=== PATIENT | female | born 1965 | race Caucasian/White ===

== ENCOUNTER 2016-07-04 22:08 | Emergency (ER) | payer MEDICARE, MEDICAID ==
[~2016-07-04] VITALS: Ht 157.5 cm; Wt 77.1 kg
[~2016-07-04 22:08] MED LIST: ASPI-496 PO; BUPR1FIL PO; CALC-39 PO; CYAN100063 PO; FERR325T20 PO; KRIL1CAP9 PO; LORA1TAB PO; METAMUCIL425 GM PO; MULT-230 PO; MULT1CAP19 PO; OMEP-110 PO; PENI500T PO
[2016-07-04 22:19] VITALS: BP 105/70
[2016-07-04] MEDS ORDERED: KETOROLAC 30 MG/1 ML ONE (23:46)
[2016-07-05] MEDS ORDERED: KETOROLAC 30 MG/1 ML IM ONE
== END 2016-07-05 00:54 | disposition home or self-care (01) ==
LOC: ED 23:59
DX: S39.012A Strain of muscle, fascia and tendon of lower back, initial encounter (principal); M54.41 Lumbago with sciatica, right side; Z90.710 Acquired absence of both cervix and uterus; X58.XXXA Exposure to other specified factors, initial encounter; Y93.89 Activity, other specified; Y92.89 Other specified places as the place of occurrence of the external cause; Y99.8 Other external cause status
CPT/HCPCS: 72110; 96372; 99284; J1885; J7512

== ENCOUNTER 2016-08-17 11:28 | Emergency (ER) | payer MEDICARE, MEDICAID ==
[~2016-08-17] VITALS: Ht 157.5 cm; Wt 75.5 kg
[2016-08-17 11:43] VITALS: BP 101/70
[2016-08-17] MEDS ORDERED: LIDOCAINE 1%, 20ML ONE (12:19)
[2016-08-17] MEDS ORDERED: LIDOCAINE 1%, 20ML SQ ONE (12:30)
== END 2016-08-17 12:46 | disposition home or self-care (01) ==
LOC: ED 12:37
DX: L05.01 Pilonidal cyst with abscess (principal); Z90.49 Acquired absence of other specified parts of digestive tract; Z90.89 Acquired absence of other organs
CPT/HCPCS: 10080

== ENCOUNTER 2016-11-07 12:26 | Emergency (ER) | payer MEDICARE, MEDICAID ==
[~2016-11-07] VITALS: Ht 157.5 cm; Wt 78.9 kg
[~2016-11-07 12:26] MED LIST changes: +FERR325T18 PO; -FERR325T20 PO
[2016-11-07 12:59] VITALS: BP 116/64
== END 2016-11-07 13:03 | disposition home or self-care (01) ==
LOC: ED 12:57
DX: F41.1 Generalized anxiety disorder (principal)
CPT/HCPCS: 93005; 99284

== ENCOUNTER 2016-12-22 09:14 | Emergency (ER) | payer MEDICARE, MEDICAID ==
[~2016-12-22] VITALS: Ht 157.5 cm; Wt 79.0 kg
[2016-12-22 09:16] VITALS: BP 106/70
== END 2016-12-22 10:31 | disposition home or self-care (01) ==
LOC: ED 10:22
DX: F41.1 Generalized anxiety disorder (principal); Z90.49 Acquired absence of other specified parts of digestive tract; Z90.710 Acquired absence of both cervix and uterus
CPT/HCPCS: 99284

== ENCOUNTER → 2017-01-10 | Outpatient (CLI) | payer MEDICARE, MEDICAID | END | disposition home or self-care (01) | LOC: CFH 07:16 | PROVIDERS: ATTEND Obstetrics & Gynecology Female Pelvic Medicine and Reconstructive Surgery | DX: Z12.31 Encounter for screening mammogram for malignant neoplasm of breast (principal) | CPT/HCPCS: 77063; G0202 ==

== ENCOUNTER 2017-03-05 16:50 | Emergency (ER) | payer MEDICARE, MEDICAID ==
[~2017-03-05] VITALS: Ht 157.5 cm; Wt 82.6 kg
[2017-03-05 17:05] VITALS: BP 118/77
[2017-03-05] MEDS ORDERED: LIDOCAINE 1%, 10ML ONE (18:12)
[2017-03-05] MEDS ORDERED: BUPIVACAINE 0.25% ONE (18:12)
[2017-03-05] MEDS ORDERED: IBUPROFEN 200 MG TABLET PO STA (18:17)
[2017-03-05] MEDS ORDERED: BACITRACIN ZINC OINT 500U/GM, 0.9 GM ONE (18:47)
== END 2017-03-05 18:38 | disposition home or self-care (01) ==
LOC: ED 18:32
DX: L02.512 Cutaneous abscess of left hand (principal)
CPT/HCPCS: 26010; 99283

== ENCOUNTER 2017-03-19 12:25 | Emergency (ER) | payer MEDICARE, MEDICAID ==
[~2017-03-19] VITALS: Ht 157.5 cm; Wt 82.1 kg
[2017-03-19 12:28] VITALS: BP 95/65
== END 2017-03-19 13:54 | disposition home or self-care (01) ==
LOC: ED 13:29
DX: J02.9 Acute pharyngitis, unspecified (principal); Z90.49 Acquired absence of other specified parts of digestive tract; Z90.710 Acquired absence of both cervix and uterus
CPT/HCPCS: 71046; 99284

== ENCOUNTER 2017-11-26 09:26 | Emergency (ER) | payer MEDICARE, MEDICAID ==
[~2017-11-26] VITALS: Ht 157.5 cm; Wt 87.1 kg
[2017-11-26] MEDS ORDERED: HYDROcodone/APAP 5/325 TABLET ONE (10:22)
[2017-11-26] MEDS ORDERED: HYDROcodone/APAP 5/325 TABLET PO ONE (10:30)
[2017-11-26 10:59] VITALS: BP 122/83
== END 2017-11-26 11:02 ==
LOC: ED 10:05
DX: R05 Cough (principal); F41.1 Generalized anxiety disorder
CPT/HCPCS: 71046; 99284

== ENCOUNTER 2017-12-12 05:40 | Emergency (ER) | payer MEDICARE, MEDICAID ==
[~2017-12-12] VITALS: Ht 157.5 cm; Wt 87.3 kg
[2017-12-12] MEDS ORDERED: KETOROLAC 30 MG/1 ML IM ONE (06:00)
[2017-12-12] MEDS ORDERED: CYCLOBENZAPRINE 10 MG TABLET PO SCH (06:00)
[2017-12-12] MEDS ORDERED: ACETAMINOPHEN 325 MG TABLET PO ONE (06:00)
[2017-12-12] MEDS ORDERED: KETOROLAC 30 MG/1 ML ONE (06:10)
[2017-12-12] MEDS ORDERED: CYCLOBENZAPRINE 10 MG TABLET ONE (06:10)
[2017-12-12] MEDS ORDERED: ACETAMINOPHEN 325 MG TABLET ONE (06:11)
[2017-12-12 07:29] VITALS: BP 108/59
== END 2017-12-12 07:57 | disposition home or self-care (01) ==
LOC: ED 06:22
DX: S39.012A Strain of muscle, fascia and tendon of lower back, initial encounter (principal); M46.1 Sacroiliitis, not elsewhere classified; Z90.49 Acquired absence of other specified parts of digestive tract; Z79.899 Other long term (current) drug therapy; X58.XXXA Exposure to other specified factors, initial encounter; Y93.89 Activity, other specified; Y99.8 Other external cause status; Y92.89 Other specified places as the place of occurrence of the external cause
CPT/HCPCS: 72110; 96372; 99284; J1885

== ENCOUNTER → 2018-01-19 | Outpatient (CLI) | payer MEDICARE, MEDICAID | END | disposition home or self-care (01) | LOC: CFH 12:04 | PROVIDERS: ATTEND Obstetrics & Gynecology Female Pelvic Medicine and Reconstructive Surgery | DX: Z12.31 Encounter for screening mammogram for malignant neoplasm of breast (principal) | CPT/HCPCS: 77063; 77067 ==

== ENCOUNTER 2019-04-29 12:03 | Outpatient (CLI) | payer MEDICARE, MEDICAID ==
[~2019-04-29 12:03] MED LIST changes: -MULT-230 PO; +MULT-806 PO
== END 2019-04-29 23:59 | disposition home or self-care (01) ==
LOC: CFH 12:03
PROVIDERS: ATTEND Obstetrics & Gynecology Female Pelvic Medicine and Reconstructive Surgery
DX: Z12.31 Encounter for screening mammogram for malignant neoplasm of breast (principal); N64.89 Other specified disorders of breast
CPT/HCPCS: 77063; 77067

== ENCOUNTER 2019-04-29 12:59 | Emergency (ER) | payer MEDICAID, MEDICARE ==
[~2019-04-29] VITALS: Ht 157.5 cm; Wt 87.5 kg
[2019-04-29 13:28] VITALS: BP 123/79
== END 2019-04-29 14:13 | disposition home or self-care (01) ==
LOC: ED 14:07
DX: B34.9 Viral infection, unspecified (principal); Z90.710 Acquired absence of both cervix and uterus; Z90.49 Acquired absence of other specified parts of digestive tract
CPT/HCPCS: 71046; 99283